=== PATIENT | female | born 1950 | race Caucasian/White ===

== ENCOUNTER → 2019-10-04 | Outpatient (CLI) | payer MEDICARE ==
[~2019-10-04] MED LIST: ASPI-556 PO; ATOR40TA69 PO; CALC-1058 PO; CHOL200079 PO; CLOP75TA14 PO; FISH1CAP65 PO; FLAX100020 PO; MAGN500C15 PO; METO25 PO; MIRA50TA PO; SENN8.6T90 PO; TRIA1CAP2 PO; VALA100031 PO
== END | disposition home or self-care (01) ==
LOC: SHCH 08:50
PROVIDERS: ATTEND Internal Medicine Cardiovascular Disease
DX: I82.499 Acute embolism and thrombosis of other specified deep vein of unspecified lower extremity (principal); R22.41 Localized swelling, mass and lump, right lower limb
CPT/HCPCS: 93970